=== PATIENT | female | born 1955 | race Caucasian/White ===

== ENCOUNTER 2020-05-03 14:49 | Outpatient (CLI) | payer MEDICARE, OTHER, SELFPAY ==
--- NOTE | 2020-05-03 15:05 | XR_ITS ---
WS: [id number] Exam: XR chest 2V* [id number] Date/Time of Exam: 05/03/2020 3:21 PM Reason For Exam: BRONCHITIS/COUGH Comparison 12/08/2015. The lungs are clear and fully expanded. Normal cardiomediastinal structures. Old fracture of the prox imal left humerus with partially visualized hardware. No pleural effusions. Increased thoracic kyphos is. XR/XR chest 2V* [id number] IMPRESSION: 1. No acute cardiopulmonary finding.
== END 2020-05-03 14:50 | disposition home or self-care (01) ==
PROVIDERS: PCP Nurse Practitioner Family; Visit Provider Nurse Practitioner Family
DX: R05 Cough (principal); J40 Bronchitis, not specified as acute or chronic
CPT/HCPCS: 71046

== ENCOUNTER 2020-05-30 12:00 | Outpatient (CLI) | payer MEDICARE, OTHER, SELFPAY | END 2020-05-30 12:01 | disposition home or self-care (01) | LOC: SLEEP 05-31 14:38 | PROVIDERS: PCP Nurse Practitioner Family; Visit Provider Nurse Practitioner Family | DX: G47.33 Obstructive sleep apnea (adult) (pediatric) (principal); G47.10 Hypersomnia, unspecified | CPT/HCPCS: G0399 ==

== ENCOUNTER 2020-06-28 20:00 | Outpatient (CLI) | payer MEDICARE, BC, SELFPAY | END 2020-06-28 20:01 | disposition home or self-care (01) | LOC: SLEEP 06-29 09:44 | PROVIDERS: PCP Nurse Practitioner Family; Visit Provider Nurse Practitioner Family | DX: G47.33 Obstructive sleep apnea (adult) (pediatric) (principal) | CPT/HCPCS: 95811 ==

== ENCOUNTER → 2021-09-15 09:06 | Outpatient (BNVA) | payer MEDICARE, OTHER, SELFPAY | PROVIDERS: PCP Nurse Practitioner Family; Visit Provider Nurse Practitioner Family | DX: K52.9 Noninfective gastroenteritis and colitis, unspecified (principal) | CPT/HCPCS: 80053 ==

== ENCOUNTER 2022-07-12 14:45 | Outpatient (CLI) | payer MEDICARE, OTHER, SELFPAY ==
--- NOTE | 2022-07-12 14:58 | XR_ITS ---
WS: [email or web address] Lumbar spine, 3 views, 07/12/2022 Clinical Data: lUMBAR PAIN Comparison: None. Findings: No compression fractures or subluxation is seen. There is disc narrowing at L5-S1. There is diffuse o steoporosis. There are osteophytes at all lumbar levels. The transverse processes and SI joints are n ormal. There are clips in the right upper quadrant from a cholecystectomy. There are clips in the left pelvi s and sutures in the left pelvis from probable: Surgery. XR/XR lumbar spine 2-3V* [id number] Impression: 1. Degenerative disc narrowing at L5-S1. 2. Osteoporosis and osteoarthritis.
--- NOTE | 2022-07-12 14:59 | XR_ITS ---
WS: [email or web address] Thoracic spine, 3 views, 07/12/2022 Clinical Data: THORACIC SPINE PAIN Comparison: None. Findings: There is slight anterior and central vertebral body height at T8 and T10 which may represent old comp ression fractures. Loss of height is less than 25%. There is diffuse osteoporosis. There is minimal o steoarthritis of all the thoracic vertebral bodies. The disc heights are normal. The diaphragms are f lattened. No paravertebral abnormalities are seen. There are clips in the right upper quadrant from a cholecystectomy. There is internal fixation of the left humeral neck fracture. XR/XR thoracic spine 2V [id number] Impression: 1. Minimal loss of height at T8 and T10 which represent compression fractures o f unknown age. 2. Osteoporosis of all the thoracic vertebral bodies.
== END 2022-07-12 14:46 | disposition home or self-care (01) ==
LOC: RAD 14:51
PROVIDERS: PCP Nurse Practitioner Family; Visit Provider Nurse Practitioner Family
DX: M54.50 Low back pain, unspecified (principal); M54.6 Pain in thoracic spine; M81.0 Age-related osteoporosis without current pathological fracture; M47.817 Spondylosis without myelopathy or radiculopathy, lumbosacral region; L82.1 Other seborrheic keratosis; L81.4 Other melanin hyperpigmentation; L21.8 Other seborrheic dermatitis; L57.0 Actinic keratosis
CPT/HCPCS: 17000; 17003; 72070; 72100; 99204

== ENCOUNTER → 2022-07-17 13:47 | Outpatient (BNVA) | payer MEDICARE, OTHER, SELFPAY | PROVIDERS: PCP Nurse Practitioner Family; Visit Provider Podiatrist Foot & Ankle Surgery | DX: I73.9 Peripheral vascular disease, unspecified (principal); E11.42 Type 2 diabetes mellitus with diabetic polyneuropathy; M20.41 Other hammer toe(s) (acquired), right foot; M20.42 Other hammer toe(s) (acquired), left foot; M21.41 Flat foot [pes planus] (acquired), right foot; M21.42 Flat foot [pes planus] (acquired), left foot; L60.3 Nail dystrophy; L84 Corns and callosities | CPT/HCPCS: 99213 ==

== ENCOUNTER → 2022-08-28 14:39 | Outpatient (BNVA) | payer MEDICARE, OTHER, SELFPAY | PROVIDERS: PCP Nurse Practitioner Family; Visit Provider Orthopaedic Surgery | DX: M48.54XA Collapsed vertebra, not elsewhere classified, thoracic region, initial encounter for fracture (principal); W19.XXXA Unspecified fall, initial encounter | CPT/HCPCS: 97760; 99204; L0456 ==

== ENCOUNTER 2022-08-28 16:06 | Outpatient (CLI) | payer MEDICARE, OTHER, SELFPAY | END 2022-08-28 16:07 | disposition home or self-care (01) | LOC: SPT 16:07 | PROVIDERS: PCP Nurse Practitioner Family; Visit Provider Orthopaedic Surgery | DX: Z46.89 Encounter for fitting and adjustment of other specified devices (principal); M48.54XA Collapsed vertebra, not elsewhere classified, thoracic region, initial encounter for fracture; W19.XXXA Unspecified fall, initial encounter | CPT/HCPCS: 97760; L0456 ==

== ENCOUNTER 2022-11-28 06:00 | Outpatient (RCR) | payer MEDICARE, OTHER, SELFPAY | END 2022-12-08 23:59 | disposition home or self-care (01) | LOC: TPT 06:00 | PROVIDERS: PCP Nurse Practitioner Family; Visit Provider Physical Medicine & Rehabilitation | DX: M54.50 Low back pain, unspecified (principal) | CPT/HCPCS: 97110; 97162 ==

== ENCOUNTER 2022-12-09 06:00 | Outpatient (RCR) | payer MEDICARE, OTHER, SELFPAY | END 2023-01-08 23:59 | disposition home or self-care (01) | LOC: TPT 06:00 | PROVIDERS: PCP Nurse Practitioner Family; Visit Provider Physical Medicine & Rehabilitation | DX: M54.50 Low back pain, unspecified (principal) | CPT/HCPCS: 97110 ==

== ENCOUNTER 2023-01-09 06:00 | Outpatient (RCR) | payer MEDICARE, OTHER, SELFPAY | END 2023-02-07 23:59 | disposition home or self-care (01) | LOC: TPT 06:00 | PROVIDERS: PCP Nurse Practitioner Family; Visit Provider Physical Medicine & Rehabilitation | DX: M54.50 Low back pain, unspecified (principal) | CPT/HCPCS: 97110 ==

== ENCOUNTER 2023-09-26 13:38 | Outpatient (CLI) | payer MEDICARE, OTHER, SELFPAY ==
--- NOTE | 2023-09-26 13:52 | XR_ITS ---
WS: [email or web address] Left hip, 2 views, 09/26/2023 Clinical Data: LEFT HIP PAIN Comparison: None. Findings: No fractures or dislocations are seen. The left hip shows no narrowing, sclerosis, cyst formation or fragment Tatian of the left femoral head. There is a left acetabular lip. There are surgical clips an d augustina in the left true pelvis.. The soft tissues are not remarkable. The adjacent pelvis is luba l. XR/XR hip LT 2-3V wo/w pel* [id number] Impression: Mild osteoarthritis of the left hip with an acetabular lip. Tonnis classification: grade 1: sclerosis of femoral head and acetabulum or sli ght joint space narrowing or slight lipping at joint margins
--- NOTE | 2023-09-26 13:52 | XR_ITS ---
WS: [email or web address] Right wrist, AP and lateral views, 09/26/2023 Clinical Data: R WRIST PAIN Comparison: None. Findings: No fractures or dislocations are seen. The carpal bones are intact. There is no soft tissue swelling. There is osteoarthritis of the right first CMC see joint and probably the right second CMC joint. Th ere is a pseudoarthrosis between the radial ulnar articulation with irregularity of the ulnar styloid which may be from an old injury. 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
--- NOTE | 2023-09-26 13:52 | XR_ITS ---
WS: [email or web address] Left knee, 3 views, 09/26/2023 Clinical Data: L KNEE PAIN Comparison: None. Findings: No fractures or dislocations are seen. Medial and lateral joint space narrowing is noted with irregul arity of the femoral articular surfaces in the lateral tibial plateau articular surface. There is a s pur of the medial femoral condyle. The patella shows irregularity with a posterior superior spur. The re is sclerosis of the femoral patellar articulation. Minimal vascular calcification is seen.. The so ft tissues are unremarkable. XR/XR knee LT 3V* [id number] Impression: Moderate osteoarthritis of the left knee. Kellgren-Anastacio Classification: grade 3 (moderate): moderate multiple osteoph ytes, definite narrowing of joint space and some sclerosis and possible deformi ty of bone ends
--- NOTE | 2023-09-26 13:52 | XR_ITS ---
WS: [email or web address] Thoracic spine, 3 views, 09/26/2023 Clinical Data: BACK PAIN Comparison: Thoracic spine, 07/12/2022 Findings: There is vertebroplasty cement in the T8 vertebral body. The loss of vertebral body height of T10 rem ains the same. There is diffuse osteoporosis along with osteoarthritis. The paravertebral regions rem ain the same. There are clips from a cholecystectomy in the right upper quadrant. There is internal fixation of a l eft proximal humeral fracture. XR/XR thoracic spine 2V [id number] Impression: 1. Vertebroplasty cement in the T8 vertebral body. 2. No change in T10 compression fracture.
--- NOTE | 2023-09-26 14:09 | XR_ITS ---
WS: [email or web address] Lumbar spine, 3 views, 09/26/2023 Clinical Data: LUMBAR PAIN Comparison: Lumbar spine, 07/12/2022 Findings: No lumbar compression fractures or subluxation is seen. There is degenerative disc narrowing at L4-L5 . There is a 0.2 cm anterolisthesis of L4 and L5. There are osteophytes at all lumbar levels. There m ay be wedge deformities of the lower thoracic vertebral bodies. The transverse processes and SI joint s are normal. There is a minimal dextroscoliosis. There are clips from a cholecystectomy in the right upper quadrant and surgical clips and sutures in the left true pelvis. XR/XR lumbar spine 2-3V* [id number] Impression: 1. Degenerative disc narrowing at L4-L5. 2. 0.2 cm anterolisthesis of L4 on L5. 3. Multilevel osteophytes and minimal dextroscoliosis.
== END 2023-09-26 13:39 | disposition home or self-care (01) ==
LOC: RAD 13:44
PROVIDERS: PCP Nurse Practitioner Family; Visit Provider Nurse Practitioner Family
DX: M51.36 Other intervertebral disc degeneration, lumbar region (principal); M43.16 Spondylolisthesis, lumbar region; M25.78 Osteophyte, vertebrae; M18.11 Unilateral primary osteoarthritis of first carpometacarpal joint, right hand; Z98.1 Arthrodesis status; S22.070A Wedge compression fracture of T9-T10 vertebra, initial encounter for closed fracture; M17.12 Unilateral primary osteoarthritis, left knee; M25.761 Osteophyte, right knee; M22.2X2 Patellofemoral disorders, left knee; M25.552 Pain in left hip
CPT/HCPCS: 72070; 72100; 73100; 73502; 73562; 99213

== ENCOUNTER 2023-10-21 13:00 | Outpatient (CLI) | payer MEDICARE, OTHER, SELFPAY ==
--- NOTE | 2023-10-21 13:17 | XR_ITS ---
WS: [email or web address] Examination: XR KUB [id number] Reason for Exam: CONSTIPATION Date: October 21, 2023 Comparison: None. Findings: There is a moderate stool burden throughout the colon particularly on the left. Scattered small bowel gas is present. Surgical clips in the right upper quadrant and pelvis are identified. Numerous round markers are identified most of which appear to overlie the colon. These are thought to represent transit markers. XR/XR KUB [id number] Impression: There is a moderate stool burden with scattered small bowel gas. Multiple previ ous surgical changes are noted Numerous transit markers are projected over the colon. By report from the patie nt this is day 4.
== END 2023-10-21 13:01 | disposition home or self-care (01) ==
PROVIDERS: PCP Nurse Practitioner Family; Visit Provider Internal Medicine Gastroenterology
DX: K59.00 Constipation, unspecified (principal)
CPT/HCPCS: 74018

== ENCOUNTER → 2023-11-12 09:00 | Outpatient (BNVA) | payer MEDICARE, OTHER, SELFPAY | PROVIDERS: PCP Nurse Practitioner Family; Visit Provider Podiatrist Foot & Ankle Surgery | DX: E11.42 Type 2 diabetes mellitus with diabetic polyneuropathy (principal); M20.41 Other hammer toe(s) (acquired), right foot; M20.42 Other hammer toe(s) (acquired), left foot; M21.41 Flat foot [pes planus] (acquired), right foot; M21.42 Flat foot [pes planus] (acquired), left foot; I73.9 Peripheral vascular disease, unspecified | CPT/HCPCS: 99213 ==

== ENCOUNTER 2023-11-28 14:24 | Outpatient (CLI) | payer MEDICARE, OTHER, SELFPAY ==
--- NOTE | 2023-11-28 14:36 | XR_ITS ---
WS: [email or web address] Bone survey for metastatic disease, 11/28/2023 Clinical Data: MONOCLONAL GAMMOPATHY/ANEMIA/IMMUNODEFIENCY Comparison: None. Findings: Lateral view of the skull: No metastatic lesions are seen. There is hyperostosis frontalis interna. Lateral cervical spine: No metastatic lesions are seen. Lateral thoracic spine: There is vertebroplasty cement in the T8 vertebral body. There is a wedge com pression of the T10 vertebral body unchanged. Lateral lumbar spine: No metastatic lesions are seen. AP lumbar spine: No metastatic lesions are seen. There are cholecystectomy clips in lower abdominal a nd pelvic surgical clips and sutures. AP thoracic spine: There is vertebroplasty cement in the T8 vertebral body. No metastatic lesions are seen. Bilateral ribs: No metastatic lesions are seen. There is internal fixation of a an old proximal left humeral fracture. Two views of both upper extremities: No metastatic lesions are seen. There is internal fixation of an old left proximal humeral fracture. AP view of the pelvis: No metastatic lesions are seen in the pelvis or hips. AP and lateral views of the thighs including the femurs: No metastatic lesions are seen. XR/XR bone survey* [id number] Impression: Negative for bony metastatic lesions.
== END 2023-11-28 14:25 | disposition home or self-care (01) ==
LOC: RAD 14:31
PROVIDERS: PCP Nurse Practitioner Family; Visit Provider Internal Medicine
DX: D47.2 Monoclonal gammopathy (principal); D50.9 Iron deficiency anemia, unspecified; D84.9 Immunodeficiency, unspecified
CPT/HCPCS: 77075

== ENCOUNTER → 2024-01-21 13:54 | Outpatient (BNVA) | payer MEDICARE, OTHER, SELFPAY | PROVIDERS: PCP Nurse Practitioner Family; Visit Provider Podiatrist Foot & Ankle Surgery | DX: E11.42 Type 2 diabetes mellitus with diabetic polyneuropathy (principal); M20.41 Other hammer toe(s) (acquired), right foot; M20.42 Other hammer toe(s) (acquired), left foot; M21.41 Flat foot [pes planus] (acquired), right foot; M21.42 Flat foot [pes planus] (acquired), left foot; I73.9 Peripheral vascular disease, unspecified | CPT/HCPCS: 99213 ==

== ENCOUNTER → 2024-05-26 14:00 | Outpatient (BNVA) | payer MEDICARE, OTHER, SELFPAY | PROVIDERS: PCP Nurse Practitioner Family; Visit Provider Podiatrist Foot & Ankle Surgery | DX: E11.42 Type 2 diabetes mellitus with diabetic polyneuropathy (principal); M20.41 Other hammer toe(s) (acquired), right foot; M20.42 Other hammer toe(s) (acquired), left foot; M21.41 Flat foot [pes planus] (acquired), right foot; M21.42 Flat foot [pes planus] (acquired), left foot; I73.9 Peripheral vascular disease, unspecified | CPT/HCPCS: 99213 ==

== ENCOUNTER 2024-08-25 20:00 | Outpatient (CLI) | payer MEDICARE, OTHER, SELFPAY | END 2024-08-25 20:01 | disposition home or self-care (01) | LOC: SLEEP 23:30 | PROVIDERS: PCP Nurse Practitioner Family; Visit Provider Internal Medicine Pulmonary Disease | DX: G47.33 Obstructive sleep apnea (adult) (pediatric) (principal); Z99.89 Dependence on other enabling machines and devices; G47.36 Sleep related hypoventilation in conditions classified elsewhere | CPT/HCPCS: 95810 ==

== ENCOUNTER → 2024-09-01 14:37 | Outpatient (BNVA) | payer MEDICARE, OTHER, SELFPAY | PROVIDERS: PCP Nurse Practitioner Family; Visit Provider Podiatrist Foot & Ankle Surgery | DX: E11.42 Type 2 diabetes mellitus with diabetic polyneuropathy (principal); M20.41 Other hammer toe(s) (acquired), right foot; M20.42 Other hammer toe(s) (acquired), left foot; M21.41 Flat foot [pes planus] (acquired), right foot; M21.42 Flat foot [pes planus] (acquired), left foot; I73.9 Peripheral vascular disease, unspecified | CPT/HCPCS: 99213 ==

== ENCOUNTER → 2024-12-01 09:47 | Outpatient (BNVA) | payer MEDICARE, OTHER, SELFPAY | PROVIDERS: PCP Nurse Practitioner Family; Visit Provider Podiatrist Foot & Ankle Surgery | DX: E11.42 Type 2 diabetes mellitus with diabetic polyneuropathy (principal); L60.3 Nail dystrophy; M20.41 Other hammer toe(s) (acquired), right foot; M20.42 Other hammer toe(s) (acquired), left foot; M21.41 Flat foot [pes planus] (acquired), right foot; M21.42 Flat foot [pes planus] (acquired), left foot; E11.8 Type 2 diabetes mellitus with unspecified complications; I73.9 Peripheral vascular disease, unspecified | CPT/HCPCS: 11721 ==

== ENCOUNTER 2025-01-25 08:42 | Outpatient (CLI) | payer MEDICARE, OTHER, SELFPAY ==
[2025-01-25 10:07] LABS: Hematocrit 38.6 % (36-47); Hemoglobin 12.40 g/dL (11.27-16.99); Mean Corpuscular HGB Conc 32.1 g/dL (30-55); Mean Corpuscular Hemoglobin 28.2 pg (27-33); Mean Corpuscular Volume 87.9 fl (85-98); Nucleated Red Blood Cells % 0 %; Platelet Count 195 10^3/cmm (157-399); Red Blood Count 4.39 10^6/uL (3.85-5.65); White Blood Count 6.72 10^3/uL (3.29-11.43)
[2025-01-25 10:29] LABS: Creatinine Urine, Random 61 mg/dL (28-217); Microalbum Creatinine Ratio Ur 16 mg/dL (0-20)
[2025-01-25 10:30] LABS: Alanine Aminotransferase 19 U/L (0-33); Albumin Level 4.8 g/dL (3.5-5.2); Alkaline Phosphatase 74 U/L (35-105); Anion Gap 15.5 (5-19); Aspartate Amino Transferase 24 U/L (0-32); Blood Urea Nitrogen 15 mg/dL (8-23); Calcium 9.5 mg/dL (8.5-10.5); Carbon Dioxide 28 mmol/L (22-29); Chloride 100 mmol/L (98-107); Ferritin 75 ng/mL (15-150); Globulin 3.2 g/dL (1.3-4.6); Glucose 168 mg/dL (65-115); Iron 56 ug/dL (37-145); Osmolality Calculated 293 mOsm/kg (285-295); Potassium 4.5 mmol/L (3.5-5.1); Sodium 139 mmol/L (136-145); Total Protein 8.0 g/dL (6.6-8.7)
[2025-01-25 10:38] LABS: Cholesterol 203 mg/dL (0-200); Free T4 Free Thyroxine 1.23 ng/dL (0.82-1.77); HDL Cholesterol 80 mg/dL (60-100); Thyroid Stimulating Hormone 1.22 uIU/mL (0.27-4.20); Triglycerides 84 mg/dL (0-150)
[2025-01-25 10:44] LABS: Estmated Average Glucose 148; Hemoglobin A1C 6.8 % (4.0-6.0)
[2025-01-26 08:40] LABS: PROTEIN, TOTAL 7.4 g/dL (6.1-8.1)
[2025-01-26 15:14] LABS: KAPPA LIGHT CHAIN, FREE, SERUM 16.3 mg/L (3.3-19.4); KAPPA/LAMBDA LIGHT CHAINS FREE 1.39 (0.26-1.65); LAMBDA LIGHT CHAIN, FREE, SERU 11.7 mg/L (5.7-26.3)
[2025-01-26 19:09] LABS: ALPHA 1 GLOBULIN 0.3 g/dL (0.2-0.3); ALPHA 2 GLOBULIN 0.7 g/dL (0.5-0.9); BETA 1 GLOBULIN 0.4 g/dL (0.4-0.6); BETA 2 GLOBULIN 0.3 g/dL (0.2-0.5)
== END 2025-01-25 08:43 | disposition home or self-care (01) ==
LOC: LAB 08:47
PROVIDERS: Absent Provider Internal Medicine; PCP Nurse Practitioner Family; Visit Provider Physician Assistant
DX: D50.9 Iron deficiency anemia, unspecified (principal); E11.9 Type 2 diabetes mellitus without complications
CPT/HCPCS: 36415; 80053; 80061; 82044; 82728; 82784; 83036; 83540; 83883; 84155; 84165; 84439; 84443; 85025; 86334

== ENCOUNTER → 2025-03-09 09:39 | Outpatient (BNVA) | payer MEDICARE, OTHER, SELFPAY | PROVIDERS: PCP Nurse Practitioner Family; Visit Provider Podiatrist Foot & Ankle Surgery | DX: E11.8 Type 2 diabetes mellitus with unspecified complications (principal); L60.3 Nail dystrophy; E11.42 Type 2 diabetes mellitus with diabetic polyneuropathy; M20.41 Other hammer toe(s) (acquired), right foot; M20.42 Other hammer toe(s) (acquired), left foot; M21.41 Flat foot [pes planus] (acquired), right foot; M21.42 Flat foot [pes planus] (acquired), left foot; I73.9 Peripheral vascular disease, unspecified; M21.611 Bunion of right foot | CPT/HCPCS: 11721; 99213 ==